=== PATIENT | male | born 1965 | race Caucasian/White ===

== ENCOUNTER 2020-10-04 11:15 | Emergency (ER) | payer OTHER, SELFPAY ==
[2020-10-04 11:18] VITALS: BP 118/70; PULSE 65; RESP 12; TEMP 35.9; O2SAT 98; BMI 26.9
--- NOTE | 2020-10-04 11:32 | DI.RAD.S_ITS ---
PROCEDURE: XR CHEST 1V INDICATIONS: chest pain TECHNIQUE: One view of the chest was acquired. COMPARISON: [facility], CR, XR CHEST 1VW (PORTABLE), 08/27/2017, 13:10. FINDINGS: Study limited by respiratory motion artifact. Surgical changes and devices: None. Lungs and pleura: Lungs are clear. No pleural effusions or pneumothorax. Mediastinum: Mediastinal contours appear normal. Heart size is normal. Bones and chest wall: No suspicious bony lesions. Overlying soft tissues appear unremarkable. IMPRESSION: Limited portable AP chest without acute cardiopulmonary abnormalities. Dictated by: Bethel Lin M.D. on 10/04/2020 at 11:05 Approved by: Bethel Lin M.D. on 10/04/2020 at 11:06
--- NOTE | 2020-10-04 11:33 | ED_ITS ---
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 He was at physical therapy for knee pain earlier today when he began having sharp stabbing left-sided chest pain that rapidly progressed to 8/10. 911 was called and he was brought to the emergency department. Had received to 3 tablets of nitroglycerin and 4 aspirin and route. Describes the nitroglycerin as helping bring his pain from 8 to 6/10. Does note that he has had similar pain approximately 2 years ago was seen at [facility] they were concerned about a blood clot. Eventually he was admitted but no definitive diagnosis was found to explain the severe pain. He states he did not have a heart catheterization and was told he did not have a blood clot. He has not had recent exertional dyspnea, chest pain, palpitations, nause a/vomiting/diarrhea, excessive fatigue, orthopnea or lower extremity edema. Related Data Allergies Allergy/AdvReac Type Severity Reaction Status Date / Time No Known Drug Allergies Allergy Verified 10/04/20 11:34 Review of Systems Review of Systems Narrative: Pertinent positive and negative findings as per HPI Remainder of review of systems is otherwise unremarkable for Constitutional: Fevers, chills, weakness ENT: No sore throat, neck pain, ear pain Respiratory: Cough, wheeze, dyspnea : Dysuria, hematuria, flank pain MS: Muscle weakness, numbness, joint swelling or warmth Skin: Rashes, nonhealing lesions Neuro: Syncope, dizziness, tingling Patient History Medical History Sudden cardiac arrest (Inactive) Social History Smoking Status: Never smoker Smoking Status: Never smoker alcohol intake frequency: holidays/special occasions only Substance Use Type: does not use Exam Narrative Exam Narrative: General: Healthy appearing, in significant distress complaining of left-sided chest pain Able to give a complete and coherent history. Well- nourished well-developed HEENT: Moist mucous membranes, normal sclera with reactive pupils, Neck: No JVD, supple Respiratory: Lungs are clear to auscultation, no wheezing no rales no rhonchi. Full and symmetrical air movement Cardiac: Regular rate and rhythm no murmurs no bruits Abdomen: Soft nontender good bowel tones, no flank pain Skin: Warm and dry, no rashes Neurologic: Grossly neurologically intact with no obvious asymmetries or abnormalities Extremities: No trauma, well perfused Psych: Cooperative, appropriate insight and affect Initial Vital Signs Initial Vital Signs: Vital Signs Temperature 96.7 F L 10/04/20 11:18 Pulse Rate 65 10/04/20 11:18 Respiratory Rate 12 10/04/20 11:18 Blood Pressure 118/70 10/04/20 11:18 Pulse Oximetry 98 10/04/20 11:18 Course Orders Ordered: ED Orders 10/04/20 11:19 EKG-12 Lead Routine 10/04/20 11:20 Complete Blood Count AUTO DIFF Stat Comprehensive Metabolic Panel Stat D Dimer Stat Lipase Stat Troponin & CK Cardiac Panel Stat 10/04/20 11:32 XR chest 1V Stat 10/04/20 11:57 Arterial Blood Gas Stat 10/04/20 12:21 CT angio chest abdomen pelvis Stat 10/04/20 13:55 Troponin I Stat Sodium Chloride (Normal Saline 0.9%) 1,000 mls @ 150 mls/hr IV CONT MARTHA Last Infusion: 10/04/20 13:44 Dose: 0 mls/hr Documented by: Admin: 10/04/20 11:42 Dose: 150 mls/hr Documented by: ERIK Discontinued Medications Ketorolac Tromethamine (Toradol) 15 mg IV NOW ONE Stop: 10/04/20 13:56 Last Admin: 10/04/20 14:16 Dose: 15 mg Documented by: RIVKA Morphine Sulfate (Morphine) 2 mg IV NOW ONE Stop: 10/04/20 11:33 Last Admin: 10/04/20 11:42 Dose: 2 mg Documented by: ERIK Vital Signs Vital signs: Vital Signs - 8 hr 10/04/20 11:18 10/04/20 12:00 10/04/20 13:50 Temperature 96.7 F L Pulse Rate 65 64 57 L Respiratory Rate 12 20 Blood Pressure 118/70 144/75 H 129/79 Pulse Oximetry 98 98 99 MDM - Chest Pain Medical Records Data Attestation: I reviewed the patient's medical records. Lab Data Attestation: I reviewed the patient's lab results. Result diagrams: 10/04/20 11:10/04/20: Labs: Lab Results 10/04/20 10/04/20 10/04/20 Range/Units :21 10: 11: WBC 6.0 (4.5-11.0) X10^3/uL RBC 4.51 (4.5-5.9) X10^6/uL Hgb 13.5 (13.5-17.5) g/dL Hct 38.2 L (41-53) % MCV 84.9 (80-100) fL MCH 29.9 (26-34) PG MCHC 35.3 (30-36) % RDW 13.1 (11.6-14.8) % Plt Count 232 (150-400) X10^3/uL Neut % (Auto) 48.9 L (50-75) % Lymph % (Auto) 42.8 H (25-40) % Alexander % (Auto) 6.3 (3-14) % Eos % (Auto) 1.2 L (2-4) % Baso % (Auto) 0.8 (0-2) % Neut # (Auto) 2900 (2251-7217) /uL Lymph # (Auto) 2600 (7298-6754) /uL Alexander # (Auto) 400 (0-900) /uL Eos # (Auto) 100 (0-450) /uL Baso # (Auto) 0 (0-100) /uL D-Dimer < 200 (<230) ng/mL ABG pH (7.35-7.45) ABG pCO2 (35-45) mmHg ABG pO2 (80-100) mmHg ABG HCO3 (22-26) mmol/L ABG Total CO2 (21-31) mmol/L ABG O2 Saturation (95-100) % ABG Base Excess (-2-2) mmol/L FiO2 Sodium 137 (137-145) mmol/L Potassium 3.6 (3.4-5.1) mmol/L Chloride 105 (98-107) mmol/L Carbon Dioxide 27 (22-32) mmol/L BUN 15 (9-20) mg/dL Creatinine 0.88 (0.66-1.25) mg/dL Estimated GFR > 60.0 (>60) mL/min BUN/Creatinine Ratio 17.0 (6-22) Glucose 102 H (70-100) mg/dL Calcium 9.0 (8.4-10.2) mg/dL Total Bilirubin 0.6 (0.2-1.3) mg/dL AST 24 (17-59) IU/L ALT 17 (<50) IU/L Alkaline Phosphatase 50 (38-126) U/L Total Creatine Kinase 74 (55-170) U/L CK-MB (CK-2) TNP CK-MB (CK-2) Rel Index TNP Troponin I < 0.012 (0.01-0.034) ng/mL Total Protein 6.9 (6.3-8.2) g/dL Albumin 3.9 (3.5-5.0) g/dL Globulin 3.0 (1.7-4.1) g/dL Albumin/Globulin Ratio 1.3 (1.0-2.8) Lipase 52 (23-300) U/L 10/04/20 10/04/20 Range/Units 11:57 13:55 WBC (4.5-11.0) X10^3/uL RBC (4.5-5.9) X10^6/uL Hgb (13.5-17.5) g/dL Hct (41-53) % MCV (80-100) fL MCH (26-34) PG MCHC (30-36) % RDW (11.6-14.8) % Plt Count (150-400) X10^3/uL Neut % (Auto) (50-75) % Lymph % (Auto) (25-40) % Alexander % (Auto) (3-14) % Eos % (Auto) (2-4) % Baso % (Auto) (0-2) % Neut # (Auto) (6173-2085) /uL Lymph # (Auto) (1981-3669) /uL Alexander # (Auto) (0-900) /uL Eos # (Auto) (0-450) /uL Baso # (Auto) (0-100) /uL D-Dimer (<230) ng/mL ABG pH 7.46 H (7.35-7.45) ABG pCO2 40.9 (35-45) mmHg ABG pO2 209 H (80-100) mmHg ABG HCO3 29 H (22-26) mmol/L ABG Total CO2 30 (21-31) mmol/L ABG O2 Saturation 100 (95-100) % ABG Base Excess 5.0 H (-2-2) mmol/L FiO2 21 Sodium (137-145) mmol/L Potassium (3.4-5.1) mmol/L Chloride (98-107) mmol/L Carbon Dioxide (22-32) mmol/L BUN (9-20) mg/dL Creatinine (0.66-1.25) mg/dL Estimated GFR (>60) mL/min BUN/Creatinine Ratio (6-22) Glucose (70-100) mg/dL Calcium (8.4-10.2) mg/dL Total Bilirubin (0.2-1.3) mg/dL AST (17-59) IU/L ALT (<50) IU/L Alkaline Phosphatase (38-126) U/L Total Creatine Kinase (55-170) U/L CK-MB (CK-2) CK-MB (CK-2) Rel Index Troponin I < 0.012 (0.01-0.034) ng/mL Total Protein (6.3-8.2) g/dL Albumin (3.5-5.0) g/dL Globulin (1.7-4.1) g/dL Albumin/Globulin Ratio (1.0-2.8) Lipase (23-300) U/L Imaging Data CT a chest abdomen pelvis dissection protocol: Radiologist's Impression: FINDINGS: Image quality: Excellent. AORTA: Intramural hematoma: Absent Maximum hematoma thickness: Not applicable. Focal contrast enhancement: Not present Ulcer-like projection (broad communication with aortic lumen > 3 mm): Absent . Dissection: Absent [place] classification: A vs B, ascending vs arch and/or descending Maximum aortic diameter: 3.8 cm, ascending aorta, normal Periaortic hematoma: Absent CHEST: Lungs and pleura: No acute airspace opacities. No pleural effusions or pneumothorax. Central and peripheral airways are patent and normal in caliber. Mediastinum: Heart size is normal. No pericardial effusion. No mediastinal or hilar adenopathy by size criteria. Central pulmonary arteries are normal in size. E sophagus is normal in caliber. No hiatal hernias. Bones and chest wall: No axillary adenopathy by size criteria. Thyroid gland normal . No suspicious bony lesions. No vertebral body compression fractures. ABDOMEN: Vasculature: Celiac trunk and mesenteric arteries are patent. Renal arteries are also patent. Solid organs: Liver is normal in size and enhancement. Gallbladder normal . Biliary system is non dilated. Pancreas enhances normally. Spleen is normal in size and enhancement. No adrenal nodules. Both kidneys are normal in size and enhancement, without hydronephrosis. Peritoneum and bowel: No free fluid or air. Bowel loops are normal in caliber and wall thickness. Nodes and vessels: No retroperitoneal or mesenteric adenopathy by size criteria. Inferior vena cava is normal in morphology. Miscellaneous: No ventral hernias. PELVIS: Genitourinary: Bladder wall thickness is normal. Miscellaneous: No inguinal hernias or adenopathy. No ventral hernias. Bones: No suspicious bony lesions. No vertebral body compression fractures. IMPRESSION: No source of current pain is found. No aneurysm or dissection is identified. No pulmonary embolus is seen. By this examination no acute disease is suspected. Dictated by: Nasir West M.D. on 10/04/2020 at 12:54 ECG Data Attestation: I personally reviewed and interpreted this ECG as follows: Interpretation: Sinus rhythm at a rate of 61 . Normal axis, normal intervals No acute ischemic changes MDM Narrative Medical decision making narrative: Increasingly anxious, desatting to the mid 80s responding nicely to 3 L NC O2. No evidence of STEMI on EKG. No reproducible chest pain on exam with fairly symmetrical blood pressures in both arms. Labs are currently pending. ABG is ordered. PE is certainly high probability, dissection as well. CTA is ordered. Labs reviewed and are entirely unremarkable. Chest abdomen pelvis CT a does not suggest dissection, pneumothorax, pulmonary embolism or infection. Troponin and repeat troponin are both unremarkable as is EKG. Uncertain etiology of his pain however it does not appear to be cardiac or aortic in nature. Discharge Plan Departure Patient Disposition: Home Clinical Impression: Atypical chest pain Instructions: DI for Atypical Chest Pain Activity Restrictions/Additional Instructions: Thank you for coming in today The chest pain that you had wished certainly concerning. With the exam blood work CT scan that was done I am confident that you are not having a heart attack, blood clots in her lungs, collapsed lungs, pneumonia or other problems with her lungs, dissection (the lining of your aorta pulling apart) or other life-threatening issues that would be causing your pain. After the workup, I am fairly confident that your pain is musculoskeletal in nature. Using 400 mg of ibuprofen (2 [id number] pills) and 1 Tylenol every 6 hours can be very helpful in controlling pain. 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 To do have concerns or worries, please feel free to return to the emergency department. I wish you the best
--- NOTE | 2020-10-04 11:33 | PC.NURSE ---
BP on right arm 124/66 BP on left arm 138/66
[2020-10-04] MEDS: SODIUM CHLORIDE 0.9% 1,000 ML 150 ML IV (11:42)
[2020-10-04] MEDS: MORPHINE 2 MG/ML INJ IV (11:42)
--- NOTE | 2020-10-04 11:43 | PC.NURSE ---
Pt's monitor alarming, SPO2 noted to be 81% with adequate pleth. Pt resting in bed eyes closed, home mask removed and O2 placed at 3L NC and surgical mask applied. Dr Lewis made aware, further orders obtained. Pt appears drowsy, responds to light touch. HOB elevated. CXR obtained. 99% on 3L at this time. Pt's said this has happened in the past and pt has a sleep study scheduled on 10/11. Reports pain /10 in L chest at this time. Primary RN in with fluids and pain meds
[2020-10-04 11:46] LABS: Add Manual Diff / Slide Review NO; Basophils Absolute Auto 0 /uL (0-100); Basophils Percent Auto 0.8 % (0-2); Eosinophils Absolute Auto 100 /uL (0-450); Eosinophils Percent Auto 1.2 % (2-4); Hematocrit 38.2 % (41-53); Hemoglobin 13.5 g/dL (13.5-17.5); Lymphocytes Absolute Auto 2600 /uL (1100-4500); Lymphocytes Percent Auto 42.8 % (25-40); Mean Corpuscular HGB Conc 35.3 % (30-36); Mean Corpuscular Hemoglobin 29.9 PG (26-34); Mean Corpuscular Volume 84.9 fL (80-100); Monocytes Absolute Auto 400 /uL (0-900); Monocytes Percent Auto 6.3 % (3-14); Neutrophils Absolute Auto 2900 /uL (1500-7000); Neutrophils Percent Auto 48.9 % (50-75); Platelet Count 232 X10^3/uL (150-400); Red Blood Cell Count 4.51 X10^6/uL (4.5-5.9); Red Cell Distribution Width 13.1 % (11.6-14.8)
[2020-10-04 11:52] LABS: Alanine Aminotransferase 17 IU/L (<50); Albumin 3.9 g/dL (3.5-5.0); Albumin Globulin Ratio 1.3 (1.0-2.8); Alkaline Phosphatase 50 U/L (38-126); Aspartate Aminotransferase 24 IU/L (17-59); Bilirubin Total 0.6 mg/dL (0.2-1.3); Blood Urea Nitrogen 15 mg/dL (9-20); Carbon Dioxide 27 mmol/L (22-32); Chloride 105 mmol/L (98-107); Creatine Kinase 74 U/L (55-170); Estimated Glomerular Filt Rate > 60.0 mL/min (>60); Glucose 102 mg/dL (70-100); HEMOLYSIS 43 (0-50); Lipase 52 U/L (23-300); Potassium 3.6 mmol/L (3.4-5.1); Sodium 137 mmol/L (137-145); Total Protein 6.9 g/dL (6.3-8.2)
[2020-10-04 12:00] VITALS: BP 144/75; PULSE 64; RESP 20; O2SAT 98
[2020-10-04 12:04] LABS: Troponin I < 0.012 ng/mL (0.01-0.034)
[2020-10-04 12:10] LABS: D Dimer < 200 ng/mL (<230)
[2020-10-04 12:12] LABS: Fractionated Inspired Oxygen 21; HCO3 ABG 29 mmol/L (22-26); Oxygen Saturation ABG 100 % (95-100); PCO2 ABG 40.9 mmHg (35-45); PO2 ABG 209 mmHg (80-100); TCO2 ABG 30 mmol/L (21-31); pH ABG 7.46 (7.35-7.45)
--- NOTE | 2020-10-04 12:21 | DI.CT.S_ITS ---
PROCEDURE: CT ANGIO CHEST ABDOMEN PELVIS INDICATIONS: ? dissection. TECHNIQUE: Precontrast 5 mm thick sections acquired from the lung apices to the iliac crests. After the administration of intravenous contrast, 2.5 mm thick sections again acquired from the lung apices to the iliac crests. Maximum intensity projection (MIP) oblique sagittal and coronal reformats were then acquired. For radiation dose reduction, the following was used: automated exposure control. COMPARISON: None. FINDINGS: Image quality: Excellent. AORTA: Intramural hematoma: Absent Maximum hematoma thickness: Not applicable. Focal contrast enhancement: Not present Ulcer-like projection (broad communication with aortic lumen > 3 mm): Absent . Dissection: Absent [place] classification: A vs B, ascending vs arch and/or descending Maximum aortic diameter: 3.8 cm, ascending aorta, normal Periaortic hematoma: Absent CHEST: Lungs and pleura: No acute airspace opacities. No pleural effusions or pneumothorax. Central and peripheral airways are patent and normal in caliber. Mediastinum: Heart size is normal. No pericardial effusion. No mediastinal or hilar adenopathy by size criteria. Central pulmonary arteries are normal in size. Esophagus is normal in caliber. No hiatal hernias. Bones and chest wall: No axillary adenopathy by size criteria. Thyroid gland normal . No suspicious bony lesions. No vertebral body compression fractures. ABDOMEN: Vasculature: Celiac trunk and mesenteric arteries are patent. Renal arteries are also patent. Solid organs: Liver is normal in size and enhancement. Gallbladder normal . Biliary system is non dilated. Pancreas enhances normally. Spleen is normal in size and enhancement. No adrenal nodules. Both kidneys are normal in size and enhancement, without hydronephrosis. Peritoneum and bowel: No free fluid or air. Bowel loops are normal in caliber and wall thickness. Nodes and vessels: No retroperitoneal or mesenteric adenopathy by size criteria. Inferior vena cava is normal in morphology. Miscellaneous: No ventral hernias. PELVIS: Genitourinary: Bladder wall thickness is normal. Miscellaneous: No inguinal hernias or adenopathy. No ventral hernias. Bones: No suspicious bony lesions. No vertebral body compression fractures. IMPRESSION: No source of current pain is found. No aneurysm or dissection is identified. No pulmonary embolus is seen. By this examination no acute disease is suspected. Dictated by: Nasir West M.D. on 10/04/2020 at 12:54 Approved by: Nasir West M.D. on 10/04/2020 at 12:58
[2020-10-04 13:50] VITALS: BP 129/79; PULSE 57; O2SAT 99
[2020-10-04] MEDS: KETOROLAC 60 MG/2 ML VIAL 15 MG IV (14:16)
[2020-10-04 14:27] LABS: Troponin I < 0.012 ng/mL (0.01-0.034)
[2020-10-04 15:06] VITALS: BP 127/87; PULSE 51; RESP 16; O2SAT 97
== END 2020-10-04 15:07 | disposition home or self-care (01) ==
PROVIDERS: Emergency Provider Emergency Medicine
DX: R07.89 Other chest pain (principal)
CPT/HCPCS: 36415; 36600; 71045; 71275; 74174; 80053; 82550; 82805; 83690; 84484; 85025; 85379; 93005; 96361; 96374; 96375; 99284; J1885; J2270; Q9967